=== PATIENT | female | born 1960 | race Caucasian/White ===

== ENCOUNTER 2022-10-10 14:52 | Outpatient (CLI) | payer OTHER, SELFPAY ==
[2022-10-10 09:52] LABS: Cholesterol* 247 mg/dL (90-199)
[2022-10-10 09:53] LABS: HDL Cholesterol* 47 mg/dL (>=50); LDL Cholesterol Calculated 180 mg/dL (<100); Triglycerides* 99 mg/dL (40-149)
[2022-10-10 14:46] LABS: TSH With Reflex to FT4* 0.779 uIU/mL (0.270-4.200)
[2022-10-13 15:12] LABS: Glucose* 110 mg/dL (60-115)
== END 2022-10-10 14:53 | disposition home or self-care (01) ==
PROVIDERS: PCP Internal Medicine; Visit Provider Internal Medicine
DX: Z01.419 Encounter for gynecological examination (general) (routine) without abnormal findings (principal); E78.5 Hyperlipidemia, unspecified; E03.9 Hypothyroidism, unspecified; E66.9 Obesity, unspecified; F41.9 Anxiety disorder, unspecified; Z13.1 Encounter for screening for diabetes mellitus
CPT/HCPCS: 80061; 82947; 84443

== ENCOUNTER 2023-01-12 09:14 | Outpatient (CLI) | payer OTHER, SELFPAY ==
[2023-01-12 12:22] LABS: Cholesterol* 165 mg/dL (90-199)
[2023-01-12 12:23] LABS: HDL Cholesterol* 43 mg/dL (>=50); LDL Cholesterol Calculated 101 mg/dL (<100); Triglycerides* 107 mg/dL (40-149)
== END 2023-01-12 09:15 | disposition home or self-care (01) ==
LOC: NFLDREF 09:14
PROVIDERS: PCP Internal Medicine; Visit Provider Internal Medicine
DX: E78.5 Hyperlipidemia, unspecified (principal)
CPT/HCPCS: 80061

== ENCOUNTER 2023-05-11 13:19 | Outpatient (CLI) | payer OTHER, SELFPAY ==
--- NOTE | 2023-05-11 13:20 | CRLHL7_ITS ---
For Patients: As a result of the Century Cures Act, medical imaging exams and procedure reports are released immediately into your electronic medical record. You may view this report before your referring provider. If you have questions, please contact your health care provider. BILATERAL SCREENING MAMMOGRAM WITH COMPUTER-AIDED DETECTION AND TOMOSYNTHESIS TECHNIQUE: CC and MLO views were obtained. These mammographic images have been obtained using full-field digital technique. These mammographic images were interpreted with the benefit of computer-aided detection. Breast Tomosynthesis was used in this interpretation. COMPARISON FILM: 05/09/22, 05/07/21, 05/04/20. FINDINGS: There are scattered areas of fibroglandular density IMPRESSION: There is no radiographic evidence for malignancy. ASSESSMENT: BI-RADS Category 2: Benign RECOMMENDATION: Routine screening mammogram in 1 year. A lay language report of this examination will be provided to the patient. Robert Tam M.D. Diagnostic/Nuclear Medicine Radiologist [email or web address] [place]/Dictated by: Robert Tam MD @ 05/12/2023 8:09:00 AM (Electronically Signed)
== END 2023-05-11 13:20 | disposition home or self-care (01) ==
LOC: MAMMO 13:19
PROVIDERS: PCP Internal Medicine; Visit Provider Internal Medicine
DX: Z12.31 Encounter for screening mammogram for malignant neoplasm of breast (principal)
CPT/HCPCS: 77063; 77067

== ENCOUNTER 2024-01-20 09:27 | Outpatient (CLI) | payer OTHER, SELFPAY | END 2024-01-20 09:28 | disposition home or self-care (01) | LOC: NFLDREF 02-05 09:41 | PROVIDERS: PCP Internal Medicine; Referring Provider Internal Medicine; Visit Provider Internal Medicine | DX: Z00.00 Encounter for general adult medical examination without abnormal findings (principal); E78.5 Hyperlipidemia, unspecified; E03.9 Hypothyroidism, unspecified; E66.9 Obesity, unspecified; R73.03 Prediabetes | CPT/HCPCS: 80061; 84439; 84443 ==

== ENCOUNTER 2024-02-17 14:00 | Outpatient (RCR) | payer MEDICAID, OTHER, SELFPAY ==
--- NOTE | 2023-11-06 13:25 | PT.OPEX ---
[facility] [place] Out[facility] Eval PT [facility] Outpatient Eval Start: 11/05/23 07:48 Freq: Status: Active Protocol: Document 11/05/23 07:48 AMS (Rec: 11/05/23 16:43 AMS [id number]) E-signed By Yvonne Roberts PT Physical Therapy Outpatient Evaluation Insurance Information Recert Due Date 01/29/24 Insurance Name Medicaid Insurance Information/Comments [place] starting 11/23/23 Medical Diagnosis Left hamstring partial tear SI joint arthritis Treating Diagnosis Left hip pain Muscle weakness Difficulty walking Referring MD Lionel Kuo Subjective Subjective Samantha returns today with a new problem of left buttocks pain. Her pain is high up on the sits bone. Her pain is sharp, intermittent and relieves with rest. The pain is worse with bicycling, sitting on a hard surface. The patient has tried ice, Tylenol/oral NSAIDs, rest, activity modification, stool changes, bicycle seat changes all with minimal and non-lasting relief. The pain has been present for a year. No known injury, falls, nor activity changes. -Dr. Kuo, 10/22/23, confirmed by patient Patient presents to physical therapy with chronic left buttock pain. Localizes the pain to the sit bone area medially on the left side and describes it as sharp/burning with movement and dull at rest . States she has numbness and cramping in her buttock area after sitting on bike seat for longer periods, but no symptoms down into the leg or back pain. 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 She spent a lot of time lifting large vegetables up to 45 pounds with repetitive bending at this time in June ( lora, self-employed). No known specific incident or injury in the past. This was originally thought to be related to left adductor muscle strain, but upon further imaging, was determined to be hamstring partial tear. MRI was done at [facility] on 10/27, which reportedly showed degenerative partial tear of left hamstring tendon (moderate) and mild tear of right hamstring as well. 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 Functional limitations/ aggravating factors include biking, sitting on harder surfaces, walking, swinging her leg in and out of her 4- chang (has modified this), bending, lifting, farming, going upstairs sometimes, and doing guitar shows (long bouts of sitting). Easing factors include icing (temporary relief) and rest. In the past, she has loved to bike 3x/week for exercise (outdoors is preferable) but has stopped d/ t pain. She will bike 12-20 miles one time per week and 30 -45 min the other two times per week, and she just bought a new bike this fall - hasn't used it yet. Also enjoys skiing 1x/month, which doesn't seem to bother her. Has also done upper body resistance band workouts 2-3x/week, but stopped this as she wasn't sure what she should be doing. Goals are sitting pain-free, farming, and biking. PMHx significant for ischiitis in her 20's, in which she had ultrasound and rest and eventually went away. States she tends to overdo it frequently. 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 Able to heel walk. Unable to assess toe walk d/t pt fearfulness (hx of plantar fasciitis). BALANCE Single leg stance: 19 sec on left, 23 sec on right. FUNCTIONAL MOBILITY Double leg squat: To 45 deg, no pain. KNEE ROM Within normal limits END RANGE QUAD CONTROL Straight leg raise: No quad lag LUMBAR ROM Flexion: To just below knee, pain in left posterior buttock * Extension: 75% Right Sidebendin% Left Sidebendin% Right rotation: 100% Left rotation: 100% HIP ROM Flexion: 110/110 Extension: 20/20 Internal Rotation: Mildly limited BL External Rotation: WNL LE MMT: Hip flexion: R 5/5 L 5/5 Hip abduction: R 5/5 L 5/5 Hip extension: R 5/5 L 5/5 Knee flexion: R 5/5 L 4/5 in 90-90 position with no pain; pain with testing in prone at 30 deg knee flexion 4/5 Knee extension: R 5/5 L 5/5 Hip adduction: R 5/5 L 5/5 SPECIAL TEST Hip Labral/Intra-articular Pathology: -ANGEL: - -FADIR: - -Hamstring 90-90: - Low back: Slump: - SLR: - SI: not assessed JOINT MOBILITY/PALPATION No tenderness to palpation over ischial tuberosity, posterior glutes, or distal hamstring muscle belly. No TTP over lumbar spine w/ spring testing. TX: Patient was educated on anatomy, physiology as it relates to current condition and HEP with use of handout/ [employer]. Patient verbalizes understanding and agrees with POC/goals. -Soreness rules with goal of symptoms returning to baseline within 24 hours and that evening Patient was instructed in the following exercises to improve strength, tissue tolerance, and/or mobility with verbal/ tactile cues as needed: Access Code: [email or web address] URL: [email or web address]/ Date: 11/05/2023 Prepared by: Yvonne Roberts Exercises - Forward Step Up - 1 x daily - 3-4 x weekly - 2-3 sets - 8 -10 reps - 10 lbs weight - Half Deadlift with Kettlebell - 1 x daily - 3-4 x weekly - 2-3 sets - 8-10 reps - 15 lbs weight - Bridge with Heels on [place] Ball - 1 x daily - 3-4 x weekly - 2-3 sets - 8-10 reps Functional Test Performed & Score LEFS: Pt will bring back and return at next visit. Assessment Assessment/Impression Pt is a 63 -year-old female who presents with concerns of chronic left buttock pain and moderate severity and low to moderate irritability. Signs and symptoms are likely indicating / consistent with degenerative left hamstring partial tearing as confirmed on MRI. Imaging also showing SI joint arthritis. On exam, patient also demonstrates notable objective findings including limited lumbar flexion d/t pain in buttock w/ otherwise normal lumbar/neuro exam, impaired balance, pain with resisted hamstring contraction at 30 deg knee flexion, and decreased posterior chain strength, leading to difficulties with biking, sitting on harder surfaces, walking, swinging her leg in and out of her 4- chang (has modified this), bending, lifting, farming, going upstairs, and doing guitar shows. Pt able to complete low-level posterior chain strengthening without increase in pain this visit. Patient is appropriate for skilled physical therapy services to address the above deficits. Pt was agreeable with plan of care and goals established. Primary Functional Limitations biking, sitting on harder surfaces, walking, swinging her leg in and out of her 4- chang (has modified this), bending, lifting, farming, going upstairs, and doing guitar shows (long bouts of sitting) Plan of Care Rehabilitation Potential Good Physical Therapy Goals In 2 sessions: Pt will demonstrate consistent HEP compliance to ensure progress in reaching established goals during course of care. In 8 sessions: Pt will sit > 1 hour with <2/ 10 pain for improved ability to perform guitar shows. Pt will bend and lift up to 25 lbs from the floor with <2/10 pain for improved ability to perform farming duties. Pt will navigate stairs reciprocally with <2/10 pain for improved ability to navigate community. Pt will return to biking >30 minutes with <3/10 pain for improved ability to perform desired recreational activities. Coordination/Communication With Referral Source Treatment Plan/Direct Interventions Gait Training,Joint Mobilization,Manual Therapy, Neuromuscular Re-ed,Self-Care/ Home Management,Therapeutic Activities,Therapeutic Exercises Frequency/Duration 1x/week for 8 sessions Patient Will Be Discharged From Therapy Completion of LTG(s), Independent w/HEP, Independently Progressing Evaluation Billing Untimed Code Treatment Minutes 25 Complexity Low Certification Information Initial Certification Date 11/05/23 Ending Certification Date 01/29/24 Provider Signature Shows Agreement With POC & Medical Necessity Physician Signature & Date Requested Please Sign/Date Here Physician Comment/Change : Physician NPI Number #
== END 2024-06-16 23:59 | disposition home or self-care (01) ==
PROVIDERS: PCP Internal Medicine; Visit Provider Orthopaedic Surgery Sports Medicine
DX: S76.312A Strain of muscle, fascia and tendon of the posterior muscle group at thigh level, left thigh, initial encounter (principal); M47.818 Spondylosis without myelopathy or radiculopathy, sacral and sacrococcygeal region; Z51.89 Encounter for other specified aftercare
CPT/HCPCS: 97110; 97140; 97161

== ENCOUNTER 2024-05-11 06:15 | Day surgery (SDC) | payer OTHER, SELFPAY ==
[2024-05-11 06:29] VITALS: BP 126/76; PULSE 75; RESP 16; TEMP 36.4; O2SAT 100; BMI 32.1
[2024-05-11] MEDS: ETHYL CHLORIDE 1 APPLICATION 1 APPLIC TOPICAL (07:00)
[2024-05-11] MEDS: BUPIVACAINE 0.5% 30 ML INJECTION (07:00)
[2024-05-11 07:17] VITALS: BP 151/71; PULSE 75; RESP 16; O2SAT 100
[2024-05-11 07:22] VITALS: BP 150/74; PULSE 81; RESP 16; O2SAT 100
[2024-05-11 07:27] VITALS: BP 142/72; PULSE 72; RESP 16; O2SAT 100
--- NOTE | 2024-05-11 07:29 | PM.ORPRC ---
Procedure Note Date of procedure: 05/11/24 Procedure: PREOPERATIVE DIAGNOSIS: 1. Left long finger flexor tenosynovitis - trigger finger POSTOPERATIVE DIAGNOSIS: 1. Left long finger flexor tenosynovitis - trigger finger PROCEDURE: 1. Left long finger flexor tendon sheath open release (A1 aiden) SURGEON: Lionel Kuo MD. RESOURCE MANAGEMENT SPECIALIST: Radha Godwin PA-C ANESTHESIA: Local anesthetic 4ml via 50:50 mixture of 1% Lidocaine with epi and 0.5% marcaine plain EBL: 2ml IMPLANTS: None TOURNIQUET: None COMPLICATIONS: None evident INDICATIONS: The patient is a pleasant 63-year-old female who has experienced left long finger catching/triggering for number of months. It has progressively gotten worse. Given the failure of nonoperative management, and how this affects daily life, surgery was recommended. DESCRIPTION OF PROCEDURE: Following a thorough discussion of risks, benefits, and alternatives consent was obtained and the operative digit(s) was marked. The patient was brought to the operating room and placed supine on the operating table. Local anesthesia induction was undertaken in preop holding. No antibiotics were administered as this was planned to be a local case only. Proper time-out was performed identifying proper patient, site, and procedure. The operative extremity was prepped and draped in the appropriate sterile fashion using ChloraPrep. An incision was made on the palmar surface of the hand overlying the MCP joint region of the appropriate digit(s) respecting the palmar creases being cautious not to cross these perpendicularly. Sharp incision through the skin, and blunt dissection through subcutaneous tissue allowing protection of crossing neurologic structures. The A1 aiden was visualized directly. It was incised sharply with a 15 blade. It was released completely from its distal to proximal extent under direct visualization. The tendon was inspected and found to be mildly striated consistent with some friction. Otherwise, it was intact. The tendon was removed out of the wound, and further inspected. The patient was asked to manually flex and extend the digits and showed no further catching. The catching which was visualized after tourniquet inflation, was no longer evident with reproduction of a manual fist and relaxation. Closure was performed with 4-O nylon in interrupted fashion. Soft dressings were applied, and the patient was transferred to the recovery room in stable condition. PLAN: 1. Encourage elevation of the operative extremity. 2. Range of motion and icing of the fingers and hand/wrist as tolerated/needed. 3. Ibuprofen/acetaminophen and/or oxycodone as needed for pain control. 4. Follow up with PA visit in 12-16 days for wound check and suture removal.
[2024-05-11 07:32] VITALS: BP 137/69; PULSE 67; RESP 16; O2SAT 100
[2024-05-11 07:36] VITALS: BP 135/73; PULSE 67; RESP 16; TEMP 36.5; O2SAT 100
== END 2024-05-11 07:52 | disposition home or self-care (01) ==
PROVIDERS: PCP Internal Medicine; Visit Provider Orthopaedic Surgery Sports Medicine
PROC: (CPT 26055; principal; 2024-05-11 07:15)
DX: M65.842 Other synovitis and tenosynovitis, left hand (principal); M65.332 Trigger finger, left middle finger
CPT/HCPCS: 26055; J0665

== ENCOUNTER 2024-05-12 10:12 | Outpatient (CLI) | payer OTHER, SELFPAY ==
--- NOTE | 2024-05-12 10:15 | CRLHL7_ITS ---
For Patients: As a result of the Century Cures Act, medical imaging exams and procedure reports are released immediately into your electronic medical record. You may view this report before your referring provider. If you have questions, please contact your health care provider. BILATERAL SCREENING MAMMOGRAM WITH COMPUTER-AIDED DETECTION AND TOMOSYNTHESIS TECHNIQUE: CC and MLO views were obtained. These mammographic images have been obtained using full-field digital technique. These mammographic images were interpreted with the benefit of computer-aided detection. Breast Tomosynthesis was used in this interpretation. COMPARISON FILM: 05/11/23, 05/09/22, 05/07/21. FINDINGS: The breasts are heterogeneously dense, which may obscure small masses. IMPRESSION: There is no radiographic evidence for malignancy. ASSESSMENT: BI-RADS Category 2: Benign RECOMMENDATION: Routine screening mammogram in 1 year. A lay language report of this examination will be provided to the patient. Austin Mahmood M.D. Diagnostic Radiologist [email or web address] [place]/Dictated by: Austin Mahmood MD @ 05/12/2024 10:49:00 AM (Electronically Signed)
== END 2024-05-12 10:13 | disposition home or self-care (01) ==
LOC: MAMMO 10:13
PROVIDERS: PCP Internal Medicine; Visit Provider Internal Medicine
DX: Z12.31 Encounter for screening mammogram for malignant neoplasm of breast (principal); R92.2 Inconclusive mammogram
CPT/HCPCS: 77063; 77067

== ENCOUNTER 2024-08-25 13:31 | Outpatient (CLI) | payer OTHER, SELFPAY ==
[2024-08-28 02:24] LABS: HPV Source Cervical; HPV, High Risk by TMA Not Detected
== END 2024-08-25 13:32 | disposition home or self-care (01) ==
PROVIDERS: PCP Internal Medicine; Visit Provider Obstetrics & Gynecology
DX: Z12.4 Encounter for screening for malignant neoplasm of cervix (principal)
CPT/HCPCS: 87624; 87625; 88141; 88142

== ENCOUNTER 2024-10-10 17:08 | Outpatient (CLI) | payer OTHER, SELFPAY | END 2024-10-10 17:09 | disposition home or self-care (01) | LOC: NFLDREF 10-14 15:27 | PROVIDERS: PCP Internal Medicine; Referring Provider Internal Medicine; Visit Provider Nurse Practitioner | DX: N30.00 Acute cystitis without hematuria (principal) | CPT/HCPCS: 87086; 87186 ==

== ENCOUNTER 2024-10-31 08:49 | Outpatient (CLI) | payer OTHER, SELFPAY ==
--- NOTE | 2024-10-31 09:15 | MR_ITS ---
[facility] [address] [address] Phone:?[phone] Fax:?[phone] Referring Physician Information: Lionel Kuo M.D. [address] [address] Phone:?[phone] Fax:?[phone] Patient:Marco A Gutierrez D.O.B:?1960 Sex:?Female Phone:?[phone] [facility] MRN:?[id number] Exam Date:?10/31/2024 EXAM: MR LUMBAR SPINE WITHOUT CONTRAST CLINICAL INFORMATION: 64-year-old female with lumbar radiculopathy. COMPARISON: Lumbar spine radiographs dated 10/25/2024. TECHNICAL INFORMATION: Sagittal T2, sagittal T1, sagittal STIR, axial T2, and axial T1-weighted MR images of the lumbar spine on a 1.5 Nadia magnet. CONTRAST: None. SEDATION: None. INTERPRETATION: Transitional lumbosacral anatomy with partial lumbarization of S1. Preserved lumbar lordosis and no spondylolysis, vertebral collapse, acute fracture, or destructive osseous lesion. Normal pre and paravertebral soft tissues. Conus medullaris positioned at L2-3, with normal configuration of the terminal nerve roots. S1-2: Hypoplastic, nonmobile mobile disc and facets with solidly fused alae, right foraminal endplate ridging, and mild right foraminal stenosis. L5-S1: Mild disc degeneration, mild dorsal to foraminal annular bulge, left paracentral annular fissure/2 mm AP protrusion, and moderate left/mild right facet degeneration with a left-sided effusion, and left greater than right inflammatory periarticular/subchondral edema. Mild to moderate central/left greater than right subarticular stenosis with descending L5 root encroachment, and mild left greater than right AP foraminal stenosis. Baastrup's phenomenon with degenerative irregularity and mild edema along the apposing spinous process margins. L4-5: Degenerative disc desiccation with preserved disc height, normal disc contours, moderate bilateral facet degeneration with mild inflammatory periarticular/subchondral edema on the right, and mild central stenosis. Patent foramina. L3-4: Degenerative disc desiccation with preserved disc height, 1-2 mm retrolisthesis, mild dorsal to right greater than left foraminal annular bulge, mild right facet degeneration, mild right subarticular stenosis, and mild right greater than left foraminal stenosis. L2-3: Mild disc degeneration, 1-2 mm retrolisthesis, mild diffuse annular bulge with asymmetric prominence in the left posterolateral to foraminal regions, normal facets, mild left subarticular stenosis, and mild left foraminal stenosis. L1-2: Mild degenerative disc desiccation with preserved disc height, normal dorsal disc contours, normal facets, and no stenosis or impingement. T12-L1: Preserved disc height and 2 mm AP central protrusion without central stenosis. Normal facets and patent foramina. No change from 10/25/2024 allowing for differences in modality. CONCLUSION: Multilevel lumbar degenerative changes with specifics as follows: 1. Facet degeneration which is moderate bilaterally at L4-5 and on the left L5- S1 with superimposed inflammatory changes chiefly on the left at L5-S1, and to a lesser extent on the right at L4-5 and L5-S1. Mild at scattered levels elsewhere. 2. L5-S1 mild to moderate central and left greater than right subarticular stenosis with descending S1 root encroachment. Mild subarticular stenosis on the left at L2-3 and on the right L3-4. Mild central stenosis at L4-5. 3. Mild foraminal stenosis on the left at L2-3, right greater than left at L3-4, and left greater than right at L5-S1. 4. No spondylolysis, vertebral collapse, acute fracture, or destructive osseous lesion. 5. 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 6. Partially lumbarized S1. PDB Electronically signed on 11/02/2024 11:54:00 PM by Guicho Nieves M.D.
== END 2024-10-31 08:50 | disposition home or self-care (01) ==
LOC: MRI 08:50
PROVIDERS: PCP Internal Medicine; Visit Provider Orthopaedic Surgery Sports Medicine
DX: M54.16 Radiculopathy, lumbar region (principal); M48.061 Spinal stenosis, lumbar region without neurogenic claudication; M48.07 Spinal stenosis, lumbosacral region; M41.9 Scoliosis, unspecified
CPT/HCPCS: 72148

== ENCOUNTER 2025-02-13 09:15 | Outpatient (RCR) | payer OTHER, SELFPAY | END 2025-06-13 23:59 | disposition home or self-care (01) | PROVIDERS: PCP Internal Medicine; Visit Provider Orthopaedic Surgery Sports Medicine | DX: M48.26 Kissing spine, lumbar region (principal); M48.061 Spinal stenosis, lumbar region without neurogenic claudication; Q76.49 Other congenital malformations of spine, not associated with scoliosis; M47.816 Spondylosis without myelopathy or radiculopathy, lumbar region; Z51.89 Encounter for other specified aftercare | CPT/HCPCS: 97110; 97140; 97162; 97530 ==

== ENCOUNTER 2025-04-10 11:00 | Outpatient (CLI) | payer OTHER, SELFPAY | END 2025-04-10 11:01 | disposition home or self-care (01) | LOC: NFLDREF 04-19 00:55 | PROVIDERS: PCP Internal Medicine; Referring Provider Internal Medicine; Visit Provider Internal Medicine | DX: R73.03 Prediabetes (principal); E03.9 Hypothyroidism, unspecified; E78.5 Hyperlipidemia, unspecified | CPT/HCPCS: 80061; 82947; 84443 ==

== ENCOUNTER 2025-05-25 14:43 | Outpatient (CLI) | payer OTHER, SELFPAY ==
--- NOTE | 2025-05-25 14:40 | CRLHL7_ITS ---
For Patients: As a result of the Century Cures Act, medical imaging exams and procedure reports are released immediately into your electronic medical record. You may view this report before your referring provider. If you have questions, please contact your health care provider. INDICATION: bilateral screening mammogram, asymptomatic 65 year old female COMPARISON: 05/12/2024, 05/11/2023, 05/09/2022 TECHNIQUE: Digital mammogram in CC and MLO projections including computer-aided detection (CAD) and tomosynthesis. BREAST COMPOSITION: The breasts are heterogeneously dense, which may obscure small masses. FINDINGS: No suspicious findings. ASSESSMENT: BI-RADS 2 Benign RECOMMENDATION: Annual screening mammogram. A lay language report of this examination will be provided to the patient. Dictated by: Austin Mahmood MD @ 05/29/2025 10:00:20 (Electronically Signed)
== END 2025-05-25 14:44 | disposition home or self-care (01) ==
PROVIDERS: PCP Internal Medicine; Visit Provider Internal Medicine
DX: Z12.31 Encounter for screening mammogram for malignant neoplasm of breast (principal); R92.333 Mammographic heterogeneous density, bilateral breasts
CPT/HCPCS: 77063; 77067

== ENCOUNTER 2025-08-21 14:15 | Outpatient (CLI) | payer OTHER, SELFPAY | END 2025-08-21 14:16 | disposition home or self-care (01) | LOC: NFLDREF 08-24 07:37 | PROVIDERS: PCP Internal Medicine; Referring Provider Internal Medicine; Visit Provider Physician Assistant | DX: N39.0 Urinary tract infection, site not specified (principal) | CPT/HCPCS: 87086; 87186 ==